=== PATIENT | male | born 1965 | race Caucasian/White ===

== ENCOUNTER 2017-09-18 09:57 | Day surgery (SDC) | payer MEDICARE, SELFPAY ==
[2017-09-13 15:56] VITALS: BMI 27.3
--- NOTE | 2017-09-14 15:54 | SUR.PREOP ---
Addendum entered by Aisha Alexander RN 09/14/17 16:05: pt notified per vm-can stop effient, remain on aspirin. Original Note: [facility]-surgical clearance on chart
[2017-09-18] VITALS (7 sets, daily range): BP systolic 98–148; BP diastolic 61–90; PULSE 73–92; RESP 16–18; TEMP 36.4–36.6; O2SAT 92–98
--- NOTE | 2017-09-18 10:59 | P.PN_ITS ---
[facility] Anesthesia Checklist - Structural Data Admitted From: Home Planned Operative Procedure/s: colonoscopy Consent for Planned Operative Procedure(s) Verified: Yes - NPO Status Verified Time NPO: 12:00 - Airway Assessment C-Spine Mobility Assessed: Yes TMJ Mobility Assessed: Yes Dentition: Good Dentition - Neurological Assessment Level of Consciousness: Awake, Alert - Anesthesia Plan Anesthesia Risk discussed: Yes Anesthesia Plan: Verified ASA Class: III Anesthesia Type: MAC [facility] Anesthesia HX I have reviewed the patient's past medical history: Yes Medical History: Reports:: Atherosclerotic Heart Disease, Congestive Heart Failure, Coronary Artery Disease, Hypertension, Internal Pacemaker, Lung Disease (COPD, SMOKER 1.5 PPD), Myocardial Infarction Denies:: Diabetes Mellitus Type 1, Diabetes Mellitus Type 2, Seizures Other Surgeries: Yes: Pacemaker Comment: neck surgery
--- NOTE | 2017-09-18 12:03 | HMH.PROC ---
[facility] Procedure Note Procedure Note:: Colonoscopy Procedure Report: Colonoscopy with cold snare polypectomy Endoscopist: Tree Montero II, MD Referring physician: Telly Hancock MD Date of Procedure: August 29, 2017 Equipment: Olympus 180 variable stiffness pediatric colonoscope Sedation: MAC sedation Indication: Mr. Mendoza is a 51-year-old gentleman who is here for initial screening colonoscopy. He reports no abdominal pain, weight loss, change in his bowel habits or rectal bleeding. He reports no family of colon cancer. His mother had colonic polyps. Procedure: Prior to the procedure, a history and physical exam was performed, and patient's medications and allergies were reviewed. The risks, benefits and alternatives of the sedation and procedure were discussed with the patient. All questions were answered and informed consent was obtained. The patient was brought to the procedure room. Patient identification and proposed procedure were verified by the physician and the nurse. The patient was placed in a left lateral decubitus position and the scope was passed under direct vision. Throughout the procedure, the patient's blood pressure, pulse, and oxygen saturations were monitored continuously. The colonoscopy was accomplished without difficulty. The patient tolerated the procedure well. Findings: On digital rectal examination there was normal rectal tone. There were no external hemorrhoids. The colonoscope was introduced through the anal canal to the rectum and advanced to the cecum. The ileocecal valve and appendiceal orifice were identified. The scope was advanced a short distance into the ileum which appeared grossly normal. The scope was then withdrawn into the colon. There were 2 colon polyps identified in the transverse ?2. These ranged in size from 5-7 mm and were all removed via cold snare polypectomy. The remaining cecum, ascending, transverse, descending, sigmoid and rectum were grossly normal. There were no other mucosal abnormalities identified. Upon retroflexion within the rectum there were grade 1 internal hemorrhoids. Impression: 1. Colonic polyps ?2 2. Grade 1 internal hemorrhoids Plan: I will follow up the polyp pathology and recommend repeat colonoscopy again in 5 years based upon the polyp histology. I would encourage fiber supplementation on a long-term daily maintenance basis.
--- NOTE | 2017-09-18 14:03 | SUR.PHASEII ---
Patient family member came back looking for patient's ring. She stated she put the ring in her purse but now cannot find it. We have helped her search but was not able to find it. Ring was not on patient's person during or after procedure.
== END 2017-09-18 13:15 | disposition home or self-care (01) ==
LOC: OUTP 10:01
PROVIDERS: PCP Emergency Medicine; Visit Provider Internal Medicine Gastroenterology
PROC: 0DJD8ZZ Inspection of Lower Intestinal Tract, Via Natural or Artificial Opening Endoscopic (ICD-10-PCS; CPT 45378; principal; 2017-09-18 11:00)
DX: Z12.11 Encounter for screening for malignant neoplasm of colon (principal); D12.3 Benign neoplasm of transverse colon; K64.0 First degree hemorrhoids
CPT/HCPCS: 45380; 88305

== ENCOUNTER → 2020-09-05 12:06 | Outpatient (CLI) | payer MEDICARE, SELFPAY | PROVIDERS: PCP Family Medicine; Visit Provider Nurse Practitioner | DX: Z20.822 Contact with and (suspected) exposure to COVID-19 (principal); U07.1 COVID-19 | CPT/HCPCS: U0003 ==

== ENCOUNTER → 2021-05-07 12:10 | Outpatient (CLI) | payer MEDICARE, SELFPAY | PROVIDERS: PCP Family Medicine; Referring Provider Family Medicine; Visit Provider Family Medicine | DX: Z20.822 Contact with and (suspected) exposure to COVID-19 (principal) | CPT/HCPCS: U0003 ==

== ENCOUNTER 2022-03-02 14:51 | Emergency (ER) | payer MEDICARE, SELFPAY ==
[2022-03-02 15:19] VITALS: BP 146/87; PULSE 106; RESP 16; TEMP 36.9; O2SAT 95; BMI 28.2
--- NOTE | 2022-03-02 15:30 | HMH.EDUTC ---
[facility] [place] Clinical Impression: Exposure to COVID-19 virus Disposition: Home, Self-Care Condition on Discharge: Good Instructions: DI for COVID-19 (Suspected or Confirmed ), Preventing the Spread of Coronavirus Discharge Instructions Additional Instructions: Drink plenty of fluids. Take tylenol for pain or fever. Return if you begin to have difficulty breathing. Follow up with your regular doctor. GO TO THE ER FOR ANY WORSENING SYMPTOMS Quarantine until you know the results of your covid-19 test. If it is positive, the health department should call you and give you further instructions about your length of Quarantine and other things. Notify your school or workplace of your results and follow their instructions regarding return to work/school. Referrals: Provider,Referral, [Primary Care Provider] - Time of Disposition: 15:35 Medical Decision Making - Medical Records Medical records reviewed: No: I reviewed the patient's medical records. - [place] Inquiry Pt receiving controlled substance: No Vital Signs: 03/02/22 15:19 03/02/22 15:37 Temperature 98.5 F 98.5 F Temperature Source Oral Pulse Rate 106 H Pulse Rate [Left] 106 H Respiratory Rate 16 16 Blood Pressure 146/87 H Blood Pressure [Right Arm] 146/87 H Blood Pressure Mean [Right Arm] 106 02 Sat by Pulse Oximetry 95 Orders (Tests/Meds): ORDERS Category Date Time Status Covid-19 Nasal PCR ([facility]) Routine Lab 03/02/22 15:16 Received [facility] [place] - General Stated complaint: covid exposure Time Seen by Provider: 03/02/22 15:30 Description of Symptoms (Recalled from Triage Doc. by RN): patient comes in for covid test. patient was exposed by . HEENT Symptoms (Recalled from RN notes): No Resp Symptoms (Recalled from RN notes): No Skin Symptoms (Recalled from RN notes): No MS Symptoms (Recalled from RN notes): No Functional Status (Recalled from RN notes): wnl - History of Present Illness Provider Complaint: Both his mother and his have tested positive for covid-19 this morning. He is not having any symptoms, but he needs a covid test. - Related Data Home Medications Medication Instructions Recorded Confirmed Aspirin [Aspirin 81mg chewable 81 mg PO DAILY 09/13/17 09/13/18 tab] Furosemide [Furosemide 40MG tAB] 40 mg PO DAILY 09/13/17 09/13/18 Metoprolol Succinate [Toprol XL 50 mg PO DAILY 09/13/17 09/13/18 50mg Tablet] Potassium Chloride [Klor-con 20 20 meq PO DAILY 09/13/17 09/13/18 mEq tablet] Prasugrel HCl [Effient 10mg tablet] 10 mg PO DAILY 09/13/17 09/13/18 Sacubitril/Valsartan [Entresto 24 1 each PO DAILY 09/13/17 09/13/18 mg-26 mg Tablet] Simvastatin 40 mg PO DAILY 09/13/17 09/13/18 Oxycodone HCl [Oxycodone (IR) 10mg 10 mg PO DAILY 09/18/17 09/13/18 Tab] Allergies Allergy/AdvReac Type Severity Reaction Status Date / Time No Known Allergies Allergy Verified 03/02/22 15:24 - Worker's Comp Is this a Worker's Comp case?: No [facility] History - Hepatitis A Screen Attestation statement:: This patient has been screened for Hepatitis A risk factors. I have reviewed the patient's past medical history: Yes Medical History: Reports:: Atherosclerotic Heart Disease, Congestive Heart Failure, Coronary Artery Disease, Hypertension, Internal Pacemaker, Lung Disease (COPD, SMOKER 1.5 PPD), Myocardial Infarction Denies:: Cancer, Diabetes Mellitus Type 1, Diabetes Mellitus Type 2, MRSA, Seizures Laterality Cases: Bilateral: Tonsillectomy Other Surgeries: Yes: Pacemaker Amputation: No Comment: neck surgery - Social History Smoking Status: Current every day smoker Tobacco Type: cigarettes Alcohol Intake: current Alcohol Intake Frequency:: holidays/special occasions only ROS Obtained: Yes All systems reviewed & no additional complaints - Constitutional Constitutional: Reports system reviewed and no additional complaints, except as docu - Eyes Eyes: Reports system
[2022-03-02 15:37] VITALS: BP 146/87; PULSE 106; RESP 16; TEMP 36.9
== END 2022-03-02 15:42 | disposition home or self-care (01) ==
PROVIDERS: Emergency Provider Nurse Practitioner Family
DX: U07.1 COVID-19 (principal); F17.210 Nicotine dependence, cigarettes, uncomplicated
CPT/HCPCS: 99212; C9803; G0463; U0003; U0005

== ENCOUNTER → 2022-09-26 08:58 | Outpatient (CLI) | payer MEDICARE, SELFPAY | PROVIDERS: PCP Emergency Medicine; Visit Provider Emergency Medicine | DX: M79.605 Pain in left leg (principal) ==

== ENCOUNTER → 2022-11-21 13:58 | Outpatient (CLI) | payer MEDICARE, SELFPAY ==
[2022-11-21 15:02] LABS: Amphetamine/Metha Screen,Urine Negative ng/ml (<1000)
[2022-11-21 15:32] LABS: Barbiturates Screen,Urine Negative ng/ml (<200)
[2022-11-21 15:33] LABS: Benzodiazepines Screen,Urine Negative ng/ml (<200)
[2022-11-21 15:34] LABS: Cocaine Screen,Urine Negative ng/ml (<300)
[2022-11-21 15:35] LABS: Methadone Screen,Urine Negative ng/ml (<300); Opiate Screen,Urine Positive ng/ml (<300)
[2022-11-21 15:36] LABS: Phencyclidine Screen,Urine Negative ng/ml (<25)
[2022-11-21 16:10] LABS: Cannabinoid Screen,Urine Negative ng/ml (<50)
== END ==
PROVIDERS: PCP Emergency Medicine; Visit Provider Emergency Medicine
DX: Z79.899 Other long term (current) drug therapy (principal)
CPT/HCPCS: 80305

== ENCOUNTER → 2023-01-17 16:24 | Outpatient (CLI) | payer MEDICARE, SELFPAY ==
[2023-01-17 14:21] LABS: Amphetamine/Metha Screen,Urine Negative ng/ml (<1000)
[2023-01-17 14:22] LABS: Barbiturates Screen,Urine Negative ng/ml (<200)
[2023-01-17 14:23] LABS: Benzodiazepines Screen,Urine Negative ng/ml (<200); Cannabinoid Screen,Urine Negative ng/ml (<50)
[2023-01-17 14:24] LABS: Cocaine Screen,Urine Negative ng/ml (<300)
[2023-01-17 14:25] LABS: Methadone Screen,Urine Negative ng/ml (<300); Opiate Screen,Urine Positive ng/ml (<300)
[2023-01-17 14:26] LABS: Phencyclidine Screen,Urine Negative ng/ml (<25)
== END ==
PROVIDERS: PCP Emergency Medicine; Visit Provider Emergency Medicine
DX: M79.2 Neuralgia and neuritis, unspecified (principal)
CPT/HCPCS: 80305

== ENCOUNTER 2023-02-13 12:44 | Emergency (ER) | payer MEDICARE, SELFPAY ==
[2023-02-13 13:40] VITALS: BP 148/78; PULSE 101; RESP 17; TEMP 37; O2SAT 96; BMI 28.5
--- NOTE | 2023-02-13 14:10 | EXP.UTC ---
Discharge Plan Disposition Patient Disposition: Home, Self-Care Condition: Good Prescriptions Prescriptions: New cephalexin 500 mg capsule 500 mg PO QID 7 Days Qty: 28 0RF mupirocin 2 % ointment 1 applic topical TID 10 Days Qty: 22 0RF Rx Instructions: apply to lesions as directed No Action gabapentin 400 mg capsule 400 mg PO TID Qty: 90 1RF oxycodone 10 mg tablet 10 mg PO QID Qty: 120 0RF zolpidem [Ambien] 5 mg tablet 5 mg PO HS Qty: 30 1RF Repatha SureClick 140 mg/mL pen injector 140 mg SQ Q2W nitroglycerin 0.4 mg tablet, sublingual 0.4 mg sublingual PRN furosemide 40 MG tablet 40 mg PO DAILY metoprolol succinate [Toprol XL] 50 MG tablet 50 mg PO DAILY simvastatin 40 MG tablet 40 mg PO DAILY potassium chloride 20 MEQ tablet 20 meq PO DAILY aspirin 81 MG tablet,chewable 81 mg PO DAILY prasugrel [Effient] 10 MG tablet 10 mg PO DAILY sacubitril-valsartan [Entresto] 1 EACH tablet 1 ea PO DAILY Referrals Follow up/Referrals: Adrian Almaguer MD [Primary Care Provider] - See instructions Activity Restrictions/Add. Instructions Additional Instructions/Restrictions: Take antibiotics and topical ointment as directed Watch for worsening signs of infection including but not limited too redness, streaks swelling and warmth follow up immediately if seen Follow up with your Family Doctor if no improvement or any worsening of symptoms Return if needed Clinical Impressions Clinical Impression: Impetigo Instructions Patient Instructions: DI for Impetigo, Impetigo, Cephalexin, Mupirocin Discharge ED Provider: Khadijah Gatica [facility] General Stated complaint: congestion, possible blister on lip Mode of Arrival: Ambulatory Source of Information: Patient Limitations: No Limitations Time Seen by Provider: 02/13/23 14:11 Description of Symptoms (Recalled from Triage Doc. by RN): PATIENT C/O SORES TO BACK, NOSE, AND AROUND MOUTH. ALSO C/O SINUS DRAINAGE, CONGESTION, FEVER AND DECREASED APPETITE HEENT Symptoms (Recalled from RN notes): Yes Resp Symptoms (Recalled from RN notes): No Skin Symptoms (Recalled from RN notes): Yes MS Symptoms (Recalled from RN notes): No Functional Status (Recalled from RN notes): WNL History of Present Illness Provider Complaint: Patient states that he has been having sinus congestion with drainage and thinks he may have had a fever he felt flush earlier States that also he thinks he has a staph infection again States that he has been having small sore like lesions beside his nose and on his chin under his mouth also has one on his back that he busted States that he has had them before and had to get antibiotics Related Data Home Medications Medication Instructions Recorded Confirmed aspirin 81 mg chewable tablet 81 mg PO DAILY Heart disease 09/13/17 01/17/23 furosemide 40 mg tablet 40 mg PO DAILY FLUID RETENTION 09/13/17 01/17/23 metoprolol succinate 50 mg 50 mg PO DAILY Heart disease 09/13/17 01/17/23 tablet,extended release 24 hr (Toprol XL) potassium chloride 20 mEq 20 meq PO DAILY Supplement 09/13/17 01/17/23 tablet,extended release(part/cryst) prasugrel 10 mg tablet (Effient) 10 mg PO DAILY Blood thinner 09/13/17 01/17/23 sacubitril 24 mg-valsartan 26 mg 1 ea PO DAILY Heart disease 09/13/17 01/17/23 tablet (Entresto) simvastatin 40 mg tablet 40 mg PO DAILY Cholesterol 09/13/17 01/17/23 evolocumab 140 mg/mL subcutaneous 140 mg SQ Q2W 11/21/22 01/17/23 pen injector (Tommie Palmer) nitroglycerin 0.4 mg sublingual 0.4 mg sublingual PRN 11/21/22 01/17/23 tablet Previous Rx's Medication Instructions Recorded gabapentin 400 mg capsule 400 mg PO TID #90 caps 01/17/23 oxycodone 10 mg tablet 10 mg PO QID #120 tabs 01/17/23 zolpidem 5 mg tablet (Ambien) 5 mg PO HS #30 tabs 01/17/23 cephalexin 500 mg capsule 500 mg PO QID 7 days #28 caps 02/13/23 mupirocin 2 % topical oint
[2023-02-13 14:19] VITALS: BP 148/78; PULSE 101; RESP 17; TEMP 37; O2SAT 96
== END 2023-02-13 14:24 | disposition home or self-care (01) ==
PROVIDERS: Emergency Provider Nurse Practitioner; PCP Emergency Medicine
DX: L01.00 Impetigo, unspecified (principal); F17.210 Nicotine dependence, cigarettes, uncomplicated; I11.0 Hypertensive heart disease with heart failure; I50.9 Heart failure, unspecified; I25.10 Atherosclerotic heart disease of native coronary artery without angina pectoris; Z95.810 Presence of automatic (implantable) cardiac defibrillator
CPT/HCPCS: 99212; 99214; G0463

== ENCOUNTER → 2023-02-21 15:41 | Outpatient (CLI) | payer MEDICARE, SELFPAY ==
[2023-02-21 16:16] LABS: Basophils # 0.1 K/mm3 (0-0.2); Basophils % 0.5 % (0.1-2.0); Eosinophils # 0.2 K/mm3 (0.0-0.4); Eosinophils % 1.5 % (0.1-12.0); Hematocrit 46.9 % (42.0-52.0); Lymphocytes # 1.8 K/mm3 (0.7-4.5); Lymphocytes % 17.7 % (10-50); Mean Corpuscular Hemoglobin 28.7 pg (27.0-31.2); Mean Corpuscular Volume 89.7 fl (80-94); Mean Platelet Volume 7.2 fl (7.4-10.4); Monocytes # 0.5 K/mm3 (0.1-1.0); Monocytes % 4.8 % (1.7-9.3); Neutrophils # 7.6 K/mm3 (1.8-7.8); Neutrophils % 75.5 % (37.0-80.0); Platelet Count 174 K/mm3 (142-424); Red Blood Count 5.22 M/mm3 (4.60-6.20); Red Cell Distribution Width 13.3 % (11.5-17.5); White Blood Count 10.1 K/mm3 (4.8-10.8)
[2023-02-21 16:53] LABS: Alanine Aminotransferase 31 U/L (12-78); Albumin Level 4.1 g/dl (3.5-5.0); Albumin/Globulin Ratio 1.4 (1.1-1.8); Alkaline Phosphatase 128 U/L (38-126); Anion Gap 15.9 mEq/L (5-15); Aspartate Amino Transferase 29 U/L (17-59); Bilirubin,Total 0.4 mg/dl (0.2-1.3); Blood Urea Nitrogen 8 mg/dl (9-20); Calcium 8.7 mg/dl (8.4-10.2); Carbon Dioxide 29 mmol/L (22.0-30.0); Chloride 101 mmol/L (98-107); Chol/HDL Ratio 2.3 (1-3.5); Cholesterol 96 mg/dl (140-200); Estimated Glomerular Filt Rate 87 ml/min (>60); GFR (African American) 105 ML/MIN (>60); Glucose 172 mg/dl (74-100); HDL Cholesterol 42 mg/dl (40-60); Potassium 3.9 mmoL/L (3.5-5.1); Sodium 142 mmol/L (136-145); Total Protein,Serum 7.1 g/dl (6.3-8.2); Triglycerides 118 mg/dl (30-150); VLDL Cholesterol 24 mg/dL (0-40)
[2023-02-21 17:05] LABS: Direct LDL Cholesterol 44.45 mg/dL (100-129)
[2023-02-21 17:11] LABS: 25-OH Vitamin D, Total 39.3 ng/mL (30-100)
[2023-02-21 17:24] LABS: Thyroid Stimulating Hormone 0.64 uIU/mL (0.465-4.68)
== END ==
PROVIDERS: PCP Emergency Medicine; Visit Provider Emergency Medicine
DX: E66.9 Obesity, unspecified (principal); T14.8XXA Other injury of unspecified body region, initial encounter; G47.00 Insomnia, unspecified; E55.9 Vitamin D deficiency, unspecified; I25.10 Atherosclerotic heart disease of native coronary artery without angina pectoris; Z68.30 Body mass index [BMI] 30.0-30.9, adult
CPT/HCPCS: 36415; 80053; 80061; 82306; 84443; 85025

== ENCOUNTER → 2023-05-09 23:53 | Outpatient (CLI) | payer MEDICARE, SELFPAY ==
[2023-05-09 20:23] LABS: Amphetamine/Metha Screen,Urine Negative ng/ml (<1000)
[2023-05-09 20:24] LABS: Barbiturates Screen,Urine Negative ng/ml (<200)
[2023-05-09 20:25] LABS: Benzodiazepines Screen,Urine Negative ng/ml (<200); Cannabinoid Screen,Urine Negative ng/ml (<50)
[2023-05-09 20:30] LABS: Cocaine Screen,Urine Negative ng/ml (<300)
[2023-05-09 20:31] LABS: Methadone Screen,Urine Negative ng/ml (<300)
[2023-05-09 20:32] LABS: Opiate Screen,Urine Positive ng/ml (<300); Phencyclidine Screen,Urine Negative ng/ml (<25)
== END ==
PROVIDERS: PCP Emergency Medicine; Visit Provider Emergency Medicine
DX: M79.2 Neuralgia and neuritis, unspecified (principal); Z79.899 Other long term (current) drug therapy
CPT/HCPCS: 80305

== ENCOUNTER → 2023-07-04 14:34 | Outpatient (CLI) | payer MEDICARE, SELFPAY ==
[2023-07-04 14:08] LABS: Barbiturates Screen,Urine Negative ng/ml (<200)
[2023-07-04 14:09] LABS: Amphetamine/Metha Screen,Urine Negative ng/ml (<1000); Benzodiazepines Screen,Urine Negative ng/ml (<200)
[2023-07-04 14:10] LABS: Cocaine Screen,Urine Negative ng/ml (<300)
[2023-07-04 14:11] LABS: Cannabinoid Screen,Urine Negative ng/ml (<50); Methadone Screen,Urine Negative ng/ml (<300)
[2023-07-04 14:13] LABS: Opiate Screen,Urine Positive ng/ml (<300); Phencyclidine Screen,Urine Negative ng/ml (<25)
== END ==
PROVIDERS: PCP Emergency Medicine; Visit Provider Emergency Medicine
DX: M79.2 Neuralgia and neuritis, unspecified (principal); Z79.899 Other long term (current) drug therapy
CPT/HCPCS: 80305

== ENCOUNTER 2023-09-15 13:52 | Outpatient (CLI) | payer MEDICARE, SELFPAY ==
[2023-09-15 15:14] LABS: Amphetamine/Metha Screen,Urine Negative ng/ml (<1000)
[2023-09-15 15:15] LABS: Barbiturates Screen,Urine Negative ng/ml (<200)
[2023-09-15 15:16] LABS: Benzodiazepines Screen,Urine Negative ng/ml (<200); Cannabinoid Screen,Urine Negative ng/ml (<50)
[2023-09-15 15:17] LABS: Cocaine Screen,Urine Negative ng/ml (<300); Methadone Screen,Urine Negative ng/ml (<300)
[2023-09-15 15:18] LABS: Opiate Screen,Urine Positive ng/ml (<300)
[2023-09-15 15:19] LABS: Phencyclidine Screen,Urine Negative ng/ml (<25)
[2023-09-19 08:20] LABS: Opiates Negative (Cutoff=100); Oxycodone (GC/MS) >3000 ng/mL (Cutoff=100); Oxymorphone (GC/MS) >3000 ng/mL (Cutoff=100)
== END 2023-09-15 23:59 ==
LOC: LAB.DROPOF 13:58
PROVIDERS: PCP Internal Medicine; Visit Provider Internal Medicine
DX: Z79.899 Other long term (current) drug therapy (principal)
CPT/HCPCS: 80307; 80361; 80365; G0480

== ENCOUNTER 2023-10-10 11:59 | Outpatient (CLI) | payer MEDICARE, SELFPAY ==
[2023-10-10 12:45] LABS: Hemoglobin A1C 6.2 % (4.0-6.0)
[2023-10-10 12:49] LABS: Alanine Aminotransferase 20 U/L (12-78); Albumin Level 4.3 g/dl (3.5-5.0); Albumin/Globulin Ratio 1.4 (1.1-1.8); Alkaline Phosphatase 110 U/L (38-126); Anion Gap 11.6 mEq/L (5-15); Aspartate Amino Transferase 29 U/L (17-59); Bilirubin,Total 0.3 mg/dl (0.2-1.3); Blood Urea Nitrogen 6 mg/dl (9-20); Calcium 9.1 mg/dl (8.4-10.2); Carbon Dioxide 29 mmol/L (22.0-30.0); Chloride 104 mmol/L (98-107); Estimated Glomerular Filt Rate 87 ml/min (>60); GFR (African American) 105 ML/MIN (>60); Glucose 119 mg/dl (74-100); Potassium 3.6 mmoL/L (3.5-5.1); Sodium 141 mmol/L (136-145); Total Protein,Serum 7.3 g/dl (6.3-8.2)
== END 2023-10-10 23:59 ==
LOC: LAB.DROPOF 12:00
PROVIDERS: PCP Internal Medicine; Visit Provider Internal Medicine
DX: I25.10 Atherosclerotic heart disease of native coronary artery without angina pectoris; Z79.899 Other long term (current) drug therapy; M54.50 Low back pain, unspecified; Z72.0 Tobacco use
CPT/HCPCS: 80053; 83036

== ENCOUNTER 2024-01-30 18:00 | Outpatient (CLI) | payer MEDICARE, SELFPAY ==
[2024-01-30 18:12] LABS: Basophils # 0.1 K/mm3 (0-0.2); Basophils % 0.6 % (0.1-2.0); Eosinophils # 0.1 K/mm3 (0.0-0.4); Eosinophils % 0.7 % (0.1-12.0); Hematocrit 49.6 % (42.0-52.0); Hemoglobin 15.5 g/dL (14.1-18.0); Lymphocytes # 1.6 K/mm3 (0.7-4.5); Lymphocytes % 20.2 % (10-50); Mean Corpuscular HGB Conc 31.2 g/dL (31.8-35.4); Mean Corpuscular Hemoglobin 28.9 pg (27.0-31.2); Mean Corpuscular Volume 92.6 fl (80-94); Mean Platelet Volume 7.9 fl (7.4-10.4); Monocytes # 0.4 K/mm3 (0.1-1.0); Monocytes % 5.5 % (1.7-9.3); Neutrophils # 5.7 K/mm3 (1.8-7.8); Neutrophils % 72.9 % (37.0-80.0); Platelet Count 188 K/mm3 (142-424); Red Blood Count 5.36 M/mm3 (4.60-6.20); Red Cell Distribution Width 14.2 % (11.5-17.5); White Blood Count 7.8 K/mm3 (4.8-10.8)
[2024-01-30 18:36] LABS: Alanine Aminotransferase 18 U/L (12-78); Albumin Level 4.5 g/dl (3.5-5.0); Albumin/Globulin Ratio 1.4 (1.1-1.8); Alkaline Phosphatase 109 U/L (38-126); Anion Gap 17.1 mEq/L (5-15); Aspartate Amino Transferase 30 U/L (17-59); Bilirubin,Total 0.5 mg/dl (0.2-1.3); Blood Urea Nitrogen 12 mg/dl (9-20); Calcium 9.4 mg/dl (8.4-10.2); Carbon Dioxide 29 mmol/L (22.0-30.0); Chloride 100 mmol/L (98-107); Chol/HDL Ratio 2.9 (1-3.5); Cholesterol 118 mg/dl (140-200); Estimated Glomerular Filt Rate 87 ml/min (>60); GFR (African American) 105 ML/MIN (>60); Globulin 3.3 g/dL (1.3-3.2); Glucose 78 mg/dl (74-100); HDL Cholesterol 41 mg/dl (40-60); Potassium 4.1 mmoL/L (3.5-5.1); Sodium 142 mmol/L (136-145); Total Protein,Serum 7.8 g/dl (6.3-8.2); Triglycerides 94 mg/dl (30-150); VLDL Cholesterol 19 mg/dL (0-40)
[2024-01-30 18:48] LABS: Direct LDL Cholesterol 65.71 mg/dL (100-129)
[2024-01-30 18:57] LABS: Hemoglobin A1C 5.8 % (4.0-6.0)
[2024-01-30 19:06] LABS: Prostate Specific Ag Screen 0.3 ng/ml (0.0-4.0)
== END 2024-01-30 23:59 | disposition home or self-care (01) ==
LOC: LAB.DROPOF 01-31 11:01
PROVIDERS: PCP Internal Medicine; Visit Provider Internal Medicine
DX: R53.83 Other fatigue (principal); R73.09 Other abnormal glucose; Z12.5 Encounter for screening for malignant neoplasm of prostate; E78.5 Hyperlipidemia, unspecified
CPT/HCPCS: 80053; 80061; 83036; 85025; G0103

== ENCOUNTER 2024-04-03 20:03 | Outpatient (CLI) | payer MEDICARE, SELFPAY ==
[2024-04-03 21:29] LABS: Creatinine,Urine Random 97 mg/dL (Not Estab.)
== END 2024-04-03 23:59 | disposition home or self-care (01) ==
LOC: LAB.DROPOF 20:04
PROVIDERS: PCP Internal Medicine; Visit Provider Internal Medicine
DX: R73.03 Prediabetes (principal)
CPT/HCPCS: 82043; 82570

== ENCOUNTER 2024-04-24 14:04 | Outpatient (CLI) | payer MEDICARE, SELFPAY ==
--- NOTE | 2024-04-24 14:08 | CT_ITS ---
FINAL REPORT CLINICAL HISTORY: Current smoker with [id number] history FINDINGS: Axial images were obtained from the lung apex to the mid abdomen by computed tomography. Low-dose protocol was utilized. CTDl vol(mGy): 2.90 DLP (mGy-cm): 110.72 FINDINGS: There is a left upper anterior chest wall pacemaker. There is streak artifact from sternotomy wires. There is no axillary adenopathy. There is no hilar or mediastinal adenopathy. Dense vascular calcification of the coronary arteries is noted. The heart size is normal. There is mild to moderate gynecomastia. There is no pericardial or pleural effusion. Limited images of the upper abdomen are unremarkable. Lung window images demonstrate no suspicious infiltrate or nodule. IMPRESSION: Lung RADS category 1. Recommend 12 month follow-up low-dose chest CT. Reviewed, Interpreted and Dictated by Miguel Hernandez MD Transcribed by Renee Gomez Authenticated and [facility]
== END 2024-04-24 23:59 | disposition home or self-care (01) ==
LOC: RAD 14:05
PROVIDERS: PCP Internal Medicine; Visit Provider Internal Medicine
DX: F17.210 Nicotine dependence, cigarettes, uncomplicated (principal)
CPT/HCPCS: 71271

== ENCOUNTER 2024-07-08 11:35 | Outpatient (CLI) | payer MEDICARE, SELFPAY ==
[2024-07-08 19:14] LABS: Thyroid Stimulating Hormone 1.24 uIU/mL (0.465-4.68)
[2024-07-08 19:33] LABS: Vitamin B12 637 pg/mL (239-931)
== END 2024-07-08 23:59 | disposition home or self-care (01) ==
LOC: LAB.DROPOF 07-09 10:03
PROVIDERS: PCP Internal Medicine; Visit Provider Internal Medicine
DX: R53.83 Other fatigue (principal); R73.03 Prediabetes; I10 Essential (primary) hypertension; E78.00 Pure hypercholesterolemia, unspecified; I25.10 Atherosclerotic heart disease of native coronary artery without angina pectoris; I73.9 Peripheral vascular disease, unspecified; R80.9 Proteinuria, unspecified; Z79.891 Long term (current) use of opiate analgesic; Z72.0 Tobacco use; Z79.899 Other long term (current) drug therapy
CPT/HCPCS: 82607; 84443

== ENCOUNTER 2024-09-04 18:51 | Outpatient (CLI) | payer MEDICARE, SELFPAY ==
[2024-09-04 19:50] LABS: Microalbumin/Creatinine Ratio 13.8
[2024-09-04 20:04] LABS: Creatinine,Urine Random 123 mg/dL (Not Estab.)
== END 2024-09-04 23:59 | disposition home or self-care (01) ==
LOC: LAB.DROPOF 18:52
PROVIDERS: PCP Internal Medicine; Visit Provider Internal Medicine
DX: R73.03 Prediabetes (principal)
CPT/HCPCS: 82043; 82570

== ENCOUNTER 2025-01-02 13:25 | Outpatient (CLI) | payer MEDICARE, SELFPAY ==
[2025-01-02 19:18] LABS: Alanine Aminotransferase 22 U/L (12-78); Albumin Level 4.2 g/dl (3.5-5.0); Albumin/Globulin Ratio 1.7 (1.1-1.8); Alkaline Phosphatase 146 U/L (38-126); Anion Gap 4.9 mEq/L (5-15); Aspartate Amino Transferase 25 U/L (17-59); Bilirubin,Total 0.5 mg/dl (0.2-1.3); Blood Urea Nitrogen 16 mg/dl (9-20); Carbon Dioxide 26 mmol/L (22.0-30.0); Chloride 105 mmol/L (98-107); Estimated Glomerular Filt Rate 76 ml/min (>60); GFR (African American) 93 ML/MIN (>60); Globulin 2.5 g/dL (1.3-3.2); Glucose 99 mg/dl (74-100); HDL Cholesterol 37 mg/dl (40-60); Potassium 3.9 mmoL/L (3.5-5.1); Sodium 132 mmol/L (136-145); Total Protein,Serum 6.7 g/dl (6.3-8.2); Triglycerides 35 mg/dl (30-150); VLDL Cholesterol 7 mg/dL (0-40)
[2025-01-02 19:44] LABS: Chol/HDL Ratio 1.4 (1-3.5); Cholesterol < 50 mg/dl (140-200); Direct LDL Cholesterol < 30.00 mg/dL (100-129)
== END 2025-01-02 23:59 | disposition home or self-care (01) ==
LOC: LAB.DROPOF 01-03 13:12
PROVIDERS: PCP Family Medicine; Visit Provider Family Medicine
DX: R73.03 Prediabetes (principal); I10 Essential (primary) hypertension
CPT/HCPCS: 80053; 80061; 83036

== ENCOUNTER 2025-06-30 07:27 | Outpatient (CLI) | payer MEDICARE, SELFPAY ==
[2025-06-30 17:01] LABS: Alanine Aminotransferase 15 U/L (12-78); Albumin Level 4.3 g/dl (3.5-5.0); Albumin/Globulin Ratio 1.4 (1.1-1.8); Alkaline Phosphatase 148 U/L (38-126); Anion Gap 12.9 mEq/L (5-15); Aspartate Amino Transferase 20 U/L (17-59); Bilirubin,Total 0.6 mg/dl (0.2-1.3); Blood Urea Nitrogen 13 mg/dl (9-20); Calcium 8.6 mg/dl (8.4-10.2); Carbon Dioxide 26 mmol/L (22.0-30.0); Chloride 103 mmol/L (98-107); Cholesterol 52 mg/dl (140-200); Creatinine,Serum 0.90 mg/dl (0.66-1.25); Estimated Glomerular Filt Rate 86 ml/min (>60); GFR (African American) 105 ML/MIN (>60); Globulin 3.1 g/dL (1.3-3.2); Glucose 90 mg/dl (74-100); HDL Cholesterol 35 mg/dl (40-60); Potassium 3.9 mmoL/L (3.5-5.1); Sodium 138 mmol/L (136-145); Total Protein,Serum 7.4 g/dl (6.3-8.2); Triglycerides 55 mg/dl (30-150)
[2025-06-30 23:47] LABS: Hemoglobin A1C 6.2 % (4.0-6.0)
--- OUTSIDE RECORDS SUMMARY | 2025-07-02 07:29 | XMS_ITS | Clinical Summary ---
Author Organization [facility] Address [address] [place] [address] Phone Care Team Providers Care Tailor Apprentice Name Role Phone Nate Ledesma MD Unavailable [phone] [ ] Conditions or Problems Problem Name Problem Code Onset Date Status Entry Date Provider Comment Standard Description Annotate Cough 65603652 (SNOMED CT) 10/08 Active 10/08 Nate Ledesma MD Cough Localized swelling on legs, bilateral 188260741 (SNOMED CT) 10/08 Active 10/08 Nate Ledesma MD Swelling of lower limb Anemia due to acute blood loss 609552699 (SNOMED CT) 10/06 Active 10/06 Mireya Nuñez Acute posthemorrhagic anemia 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 (ICD-10-CM ) 10/06 Active 10/06 Mireya Nuñez Leukemoid reaction Coronary artery disease, S/P CABG 09504223 (SNOMED CT) 10/06 Active 10/06 Mireya Nuñez Coronary arteriosclerosis Alkaline phosphatase, elevated 459306849 (SNOMED CT) 10/06 Active 10/06 Mireya Nuñez Alkaline phosphatase above reference range Hypocalcemia 2322590 (SNOMED CT) 10/06 Active 10/06 Mireya Nuñez Hypocalcemia Benign Essential Hypertension 50983117 (SNOMED CT) 10/06 Active 10/06 Mireya Nuñez Benign hypertension Medications Medication Instructions Start Date Stop Date Generic Name NDC Provider OXYCODONE HCL 10 MG TABS OXYCODONE HCL 23890129253 Kole [place] SPIRONOLACTONE 25 MG TABS SPIRONOLACTONE 48125571537 Kole [place] [facility] NICOTINE 21 MG/24HR PT24 NICOTINE 25841109105 Kole Ellis METOPROLOL SUCCINATE ER 50 MG [id number] METOPROLOL SUCCINATE 39238234531 Kole Ellis FUROSEMIDE 40 MG TABS FUROSEMIDE 56401006021 Kole Ellis FERROUS SULFATE 325 (65 Fe) MG TABS FERROUS SULFATE 88599315035 Kolemariaelena Ellis DOXYCYCLINE HYCLATE 100 MG CAPS DOXYCYCLINE HYCLATE 52617694227 Kolemariaelena Ellis ATORVASTATIN CALCIUM 40 MG TABS ATORVASTATIN CALCIUM 81244465715 Kole Ellis ASPIRIN 325 MG TABS ASPIRIN 38477841374 Kole Ellis Medications Administered No information available. Allergies, Adverse Reactions, Alerts No information available. Results Date Name Value Unit Range Flag Description Lab Report: C-REACTIVE PROTE IN CRP 1.50 mg/dL 0.00-0.50 H C reactive protein [Mass/volume] in Serum or Plasma Lab Report: COMPREHENSIVE TX TABOLIC PANEL ANIONGAP 14.0 mmol/L 5.0-15.0 anion gap, serum BUN/CREAT 9.8 7.0-25.0 Urea nitrogen/Creatinine [Mass Ratio] in Serum or Plasma [id number] 1.0 g/dL GE use only - for [employer] import when terms are not otherwise specified GFRC 76 mL/min/1 .73m2 >60 Glomerular Filtration Rate Calculation BILI TOTAL 0.6 mg/dL 0.2-1.2 Bilirubin. total [Mass/volume] in Serum or Plasma ALK PHOS 145 U/L 39-117 H Alkaline rody sphatase [Enzymatic activity/volume] in Blood SGOT (AST) 18 U/L 1-40 Aspartate aminotransferase [Enzymatic activity/volume] in Serum or Plasma SGPT (ALT) 11 U/L 1-41 Alanine aminotransferase [Enzymatic activity/volume] in Serum or Plasma ALBUMIN 4.00 g/dL 3.50-5.20 Albumin [Mass/volume] in Serum or Plasma PROTEIN, TOT 7.9 g/dL 6.0-8.5 Protein [Mass/volume] in Serum or Plasma CALCIUM 9.5 mg/dL 8.6-10.5 Calcium [Moles/volume] in Serum or Plasma CO2 28.0 mmol/L 22.0-29.0 Carbon diox simone, total [Moles/volume] in Venous blood CHLORIDE 98 mmol/L 98-107 Chloride [Moles/volume] in Serum or Plasma POTASSIUM 4.2 mmol/L 3.5-5.2 Potassium [Moles/volume] in Serum or Plasma SODIUM 140 mmol/L 136-145 Sodium [Moles/volume] in Serum or Plasma CREATININE 1.02 mg/dL 0.76-1.27 Creatini ne [Mass/volume] in Serum or Plasma BUN 10 mg/dL 6-20 Urea nitrogen [Mass/volume] in Serum or Plasma GLUCOSE SER 108 mg/dL 65-99 H Glucose [Mass/volume] in Serum or Plasma Office Visit: Room 2 MEDS REVIEW Done Documenta tion of current medications (procedure) ORALTOBACUSE Never Tobacco smoking status CIGARET SMKG yes Tobacco smoking status SMOK STATUS Current every day smoker Tobacco smoking status Plan of Care Type Date Detail Pending order CMP Pending order CBC with Differe ntial Pending order C- reactive prot ein Pending order X-Ray, Chest, PA & Lateral Procedures Code Procedure Name Date Entry Date CPT-41938 CMP [id number] CBC with Differential 2018 CPT-73681 C- reactive protein CPT-67679 X-Ray, Chest, PA & Lateral 2 Vital Signs Date Name Value Unit Description BMI (Body Mass Index) 26.84 kg/m2 Bod y Mass Index (Ratio) Body Temperature 97.4 [degF] temperat ure E&M BP Diastolic 58 mm[Hg] blood pressu re, diastolic BP Systolic 116 mm[Hg] blood pressur e, systolic Heart Rate 60 /min pulse rate Respiratory Rate 16 /min respirat ory rate E&M Weight Measured 171.4 [lb_av] weight E& M Weight Measured 171.4 [lb_av] weight E& M Height 67 [in_us] height E&M Immunizations No information available. Advance Directives Directive Description Start Date POWER OF INTERN RETAIL LIVING WILL ON FILE
--- OUTSIDE RECORDS SUMMARY | 2025-07-02 07:29 | XMS_ITS | Clinical Summary ---
Author Organization Healthcare Address [address] [place] [address] Care Team Providers Care Naval Marine Engineer Name Role Phone Unavailable Primary Care Provider Unavailabl e Social History Tobacco Use Types Packs/Day Years Used Date Smoking Tobacco: Never Assessed Sex and Gender Information Value Date Recorded Sex Assigned at Not on file Legal Sex Male 7:34 PM EDT Gender Identity Not on file Sexual Orientation Not on file Plan of Treatment Not on file
--- OUTSIDE RECORDS SUMMARY | 2025-07-02 07:29 | XMS_ITS | Clinical Summary ---
Author Organization [facility] [place] [place] [address] Care Team Providers Care Manager Administration Name Role Phone Unavailable Primary Care Provider Unavailabl e Social History Tobacco Use Types Packs/Day Years Used Date Smoking Tobacco: Never Assessed Sex and Gender Information Value Date Recorded Sex Assigned at Not on file Legal Sex Male 6:41 AM EDT Gender Identity Not on file Sexual Orientation Not on file Plan of Treatment Health Maintenance Due Date Last Done Comments Annual Wellness Exam 1968 DTaP/TDaP/Td (1 - Tdap) 1984 Hepatitis B Vaccine (1 of 3 - 19+ 3-dose series) 1984 Cologuard 2010 Colon Cancer Screening 2010 Colonoscopy 2010 FIT 2010 Sigmoidoscopy 2010 Virtual Colonography 2010 Pneumococcal Vaccine 50+ (1 of 1 - PCV) 12/07/2015 Zoster (1 of 2) 12/07/2015 COVID-19 Vaccine (1 - 2024-2 6 season) 2025 Influenza Vaccine (#1) 2025 Meningococcal B Vaccine Aged Out No l onger eligible based on patient's age to complete this topic
--- OUTSIDE RECORDS SUMMARY | 2025-07-02 07:29 | XMS_ITS | Clinical Summary ---
Author Organization [facility] Address [address] [place] [address] Care Team Providers Care Hand Umbrella Tipper Name Role Phone Daniel Atkinson DO Primary Care Provider [phone] Allergies No known active allergies Medications OXYCODONE ER PO Take 10 mg by mouth 4 (Four) Times a Day. Active metoprolol tartrate (LOPRESSOR) 50 MG tablet Take 1 tablet by mouth Every 12 (Twelve) Hours. 60 tablet 11 9 Active furosemide (LASIX) 40 MG tablet Take 1 tablet by mouth Daily. 30 tablet 11 9 Active ferrous sulfate 325 (65 FE) MG tablet Take 1 tablet by mouth Daily With Breakfast. 30 tablet 9 Active spironolactone (ALDACTONE) 25 MG tablet Take 1 tablet by mouth Daily. 30 tablet 11 9 Active aspirin 81 MG chewable tablet Chew 2 tablets Daily. Active atorvastatin (LIPITOR) 80 MG tablet Take 1 tablet by mouth Daily. Active sacubitril-vals osiris (Entresto) 24-26 MG tablet Take 1 tablet by mouth 2 (Two) Times a Day. Active potassium chloride ER (K-TAB) 20 MEQ tablet controlled-rele ase ER tablet Take 10 mEq by mouth Daily. Active Evolocumab (Repatha) solution prefilled syringe injection Inject 1 mL under the skin into the appropriate area as directed Every 14 (Fourteen) Days. Active ezetimibe (ZETIA) 10 MG tablet Take 1 tablet by mouth Daily. Active clopidogrel (PLAVIX) 75 MG tablet Take 1 tablet by mouth Daily. 90 tablet 3 05/30/2024 9:25 AM EDT 10/03/202 4 Active Active Problems Problem Noted Date Diagnosed Date Femoral artery occlusion, right 05/29/2024 Encounter for implantable de fibrillator reprogramming or check 02/23/2021 Overview (02/23/2021): Added automatically from request for surgery [id number] S/P CABG x 3 07/18/19 07/19/2019 Ischemic cardiomyopathy 07/19/2019 Abnormal stress test 07/09/2019 Coronary artery disease invo lving citizen [place] coronary artery of citizen [place] heart with angina pectoris 07/09/2019 Extremity atherosclerosis with intermittent rufina dication 12/08/2016 Resolved Problems Problem Noted Date Diagnosed Date Resolved Date Coronary artery disease with unstable angina pectoris 07/15/2019 07/19/2019 Immunizations Immunization Administration Dates Next Due flucelvax quad pfs =>4 YRS 07/30/2019 Family History Medical History Relation Name Comments Heart disease Brother 1 Heart disease Brother 2 Heart attack Father No Known Problems Maternal Grandfather Heart attack Maternal Grandmother Arrhythmia Mother Heart disease Mother Diabetes Other Diabetes Paternal Grandfather Heart attack Paternal Grandmother Heart disease Paternal Uncle Relation Name Status Comments Brother 1 Alive Brother 2 Alive Father Maternal Grandfather Maternal Grandmother Mother Alive Other Paternal Grandfather Paternal Grandmother Paternal Uncle Social History Tobacco Use Types Packs/Day Years Used Date Smoking Tobacco: Every Day Cigarettes 1 41.8 Started: 1983 Smokeless Tobacco: Never Tobacco Cessation:Ready to Q uit: Not Asked; Counseling Given: Not Answered Alcohol Use Standard Drinks/Week Comments Not Currently 0 (1 standard drink = 0.6 oz pur e alcohol) SOCIALLY AUDIT-C Answer Date Recorded Q1: How often do you have a drink containing alcohol? Never 05/29/2024 Q2: How many drinks containi ng alcohol do you have on a typical day when you are drinking? Patient does not drink Q3: How often do you have si x or more drinks on one occasion? Never 05/29/2024 Abuse Screen Answer Date Recorded Feels Unsafe at Home or Work/School no 05/29/2024 Feels Threatened by Someone no 09/2023 Does Anyone Try to Keep You From Having Contact with Others or Doing Things Outside Your Home? no 05/29/2024 Physical Signs of Abuse Present no 05/29/2024 Housing Stability Answer Date Recorded Current Living Arrangements home 09/2023 Potentially Unsafe Housing Conditions Not on chandrika e 05/29/2024 Family and Community Support Answer Robert e Recorded Help with Day-to-Day Activities Not on file 06/05/2023 Lonely or Isolated Not on file 06/05/2023 Employment Answer Date Recorded Do you want help finding or keeping work or a ely b? Not on file 06/05/2023 Disabilities Answer Date Recorded Difficulty Concentrating, Remembering or Making Decisions no 05/29/2024 Difficulty Managing Errands Independently no 05/29/2024 Education Answer Date Recorded Help with school or training? 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 Not on file Not on fi le Last Filed Vital Signs Vital Sign Reading Time Taken Comments Blood Pressure 105/61 05/30/2024 11:30 AM EDT Pulse 60 05/30/2024 11:30 AM EDT Temperature 36.6 C (97.8 F) 05/30/2024 8:00 AM EDT Respiratory Rate 16 05/30/2024 10:00 AM EDT Oxygen Saturation 92% 05/30/2024 11:30 AM EDT Inhaled Oxygen Concentration - - Weight 80.1 kg (176 lb 9.4 oz) 05/29/2024 11:29 AM EDT Height 168.9 cm (5' 6.5 ) 05/29/2024 11:29 AM ED T Body Mass Index 28.08 05/29/2024 11:29 AM EDT Plan of Treatment Health Maintenance Due Date Last Done Comments TDAP/TD VACCINES (1 - Tdap) 1984 COLOGUARD 2010 COLON CANCER SCREENING 5 YEA R SIGMOIDOSCOPY 2010 COLONOSCOPY 2010 [address] CANCER SCREENING 2010 CT COLONOGRAPHY 2010 FECAL OCCULT BLOOD TEST 2010 FIT Testing (1 year) 2010 Pneumococcal Vaccine 50+ (1 of 1 - PCV) 12/07/2015 ZOSTER VACCINE (1 of 2) 12/07/2015 ANNUAL PHYSICAL 12/08/2016 HEPATITIS C SCREENING 12/08/2016 INFLUENZA VACCINE 03/28/2025 07/04/2023, , 07/30/2019, Additional history exists HEMOGLOBIN A1C Discontinued 05/22/2024, 06/29, 07/16/2019 Medical Devices Implanted Type Area Slicing Machine Feeder Device Identifier Shelf Expiration Date Model / Serial / Lot Icd-02/25/2011 Implanted:08/2010 by Abbe Tripathi MD (Quantity not on file) ICD [facility] FOR[employer] Y / / Description:Last checked in Dr. Tripahti's office on 07/02/2019; 2.2 years batter life remaining at time of interrogation. Stent Periph Zilver Ptx 6f 8x40mm 125cm - [id number] Implanted:Qty: 1 on 12/08/2016 by Abbe Tripathi MD at [facility] Implant COOK [id number] / / Abhay [facility] Radiomark Disk Ro Caterina - [id number] Implanted:Qty: 2 on 07/18/2019 by Lukasz Martin MD at [facility] Implant [employer] [id number] / / Icd Halina Duran Df4/Is1 [id number] - [id number] Implanted:Qty: 1 on 03/02/2021 by Adrian Mcadams MD at [facility] Implant [employer] [id number] / / Stentgr Endoprosth Viabahn Ro Hep 7f 7mm [id number] - [id number] - [id number] Implanted:Qty: 1 on 04/27/2022 by Delio Soriano MD at [facility] Implant Right: Artery Iliac [employer] 10/13/2024 [id number] / [id number] / Stentgr Endoprosth Viabahn Vbx Exp 8f [id number] 80cm - [id number] - [id number] Implanted:Qty: 1 on 04/27/2022 by Delio Soriano MD at [facility] Implant Left: Artery Iliac [employer] 01/17/2025 [id number] / [id number] / [id number] Vasc Vascuguard 1x6cm Strl - [id number] Implanted:Qty: 1 on 05/29/2024 by Delio Soriano MD at [facility] Implant Right: Groin [employer] 11/27/2025 [id number] / / [id number] Clip Ligat Vasc Horizon Ti Lg Orng 6ct - [id number] Implanted:Qty: 1 on 05/29/2024 by Delio Soriano MD at [facility] Implant Right: Groin [employer] 03/27/2029 [id number] / / [id number] Hemost Abs Surgicel Snow 1x2in - [id number] Implanted:Qty: 1 on 05/29/2024 by Delio Soriano MD at [facility] Implant Right: Groin [employer] J [employer] J 09/27/2024 [id number] / / [id number] Clipapplr M/ Endo Ligaclip9 3/8in Md - [id number] Implanted:Qty: 1 on 05/29/2024 by Delio Soriano MD at [facility] Implant Right: Groin [employer] ENDO SURGERY DIV [employer] J [employer] J 01/25/2029 [id number] / / [id number] Stent Nitnl Smrtctrl 9x40mm 120cm - [id number] Implanted:Qty: 1 on 12/08/2016 by Abbe Tripathi MD at [facility] Stent CORDIS DIV [employer] J AND J [id number] / / Icd-03/02/2021 Implanted:07/0 01/2021 (Quantity not on file) [facility] Procedures Procedure Name Priority Date/Time Associated Diagnosis Comments HEMOGLOBIN A1C Routine 05/22/2024 8:58 AM EDT from Last 3 Months or Most Recently Relevant to Health Maintenance Results * (ABNORMAL) Hemoglobin A1c (05/22/2024 8:58 AM EDT) Hemoglobin A1C 6.20(H) 4.80 - 5.60 % 05/22/2024 10:45 AM EDT [facility] Blood Venipuncture / Unknown 05/22/2024 8:58 AM EDT 05/22/2024 9:22 AM EDT Narrative [facility] - 05/22/2024 10:45 AM EDT Hemoglobin A1C Ranges: Increased Risk for Diabetes 5.7% to 6.4% Diabetes >= 6.5% Diabetic Goal < 7.0% Delio Soriano MD LAB BLOOD ORDERABLES Final Resul t [facility]
[address] [place] [address], from Last 3 Months or Most Recently Relevant to Health Maintenance Insurance MEDICARE ADVANTAGE PPO Advance Directives * CPR (Attempt to Resuscitate) (Latest Code Status on File) Date Activated Date Inactivated Comments 05/29/2024 11:29 AM 05/30/2024 2:54 PM Question Answer Comments Code Status (Patient has no pulse and is not breathing): CPR (Attempt to Resuscitate) Medical Interventions (Patie nt has pulse or is breathing): Full Support Level Of Support Discussed With: Patient * CPR (Attempt to Resuscitate) Date Activated Date Inactivated Comments 07/18/2019 5:05 PM 07/31/2019 12:37 PM Question Answer Comments Code Status (Patient has no pulse and is not breathing): CPR (Attempt to Resuscitate) Medical Interventions (Patie nt has pulse or is breathing): Full * CPR (Attempt to Resuscitate) Date Activated Date Inactivated Comments 07/15/2019 2:24 PM 07/18/2019 5:05 PM Question Answer Comments Code Status (Patient has no pulse and is not breathing): CPR (Attempt to Resuscitate) Medical Interventions (Patie nt has pulse or is breathing): Full Level Of Support Discussed With: Patient * Full Code Date Activated Date Inactivated Comments 12/08/2016 4:43 PM 12/09/2016 1:01 PM Question Answer Comments Level Of Support Discussed With: Patient Care Teams Hand Umbrella Tipper Relationship Specialty Start Date End Date Daniel Atkinson DO [address] [place] [id number] PCP - General Internal Medicine 05/22/24
--- OUTSIDE RECORDS SUMMARY | 2025-07-02 07:29 | XMS_ITS | Clinical Summary ---
Author Organization [employer] ([place], [place], [place], [place], [place]) Address [address] [place] [address] Care Team Providers Care Elevator Tender Name Role Phone Unavailable Primary Care Provider Unavailabl e Allergies No known active allergies Social History Tobacco Use Types Packs/Day Years Used Date Smoking Tobacco: Never Assessed Food Insecurity Answer Date Recorded Food run out past 12 months Not on file 02/27 Food did not last past 12 months Not on file 03/26/2024 Employment Answer Date Recorded Help finding and keeping a job Not on file 0 03/26/2024 Family and Community Support Answer Robert e Recorded Help with Day to Day Activities Not on file 03/26/2024 Feeling Lonely or Isolated Not on file 03/26 Educational Attainment Answer Date Nikko rded Speak language other than Ukrainian at home Not on file 03/26/2024 Want help with school or training Not on file 03/26/2024 Substance Use Answer Date Recorded Used prescription meds for non-medical reasons N ot on file 03/26/2024 Used illegal drugs past 12 months Not on file 03/26/2024 Sex and Gender Information Value Date Recorded Sex Assigned at Not on file Legal Sex Male 1:57 PM CDT Gender Identity Not on file Sexual Orientation Not on file Plan of Treatment Health Maintenance Due Date Last Done Comments CT Colonography 1965 Colonoscopy 1965 Colorectal Cancer Screening 1965 FOBT/FIT 1965 Fit-DNA (Cologuard) 1965 Sigmoidoscopy 1965 Depression Screening (12+) 1977 Tobacco Cessation Counseling and Screening (12+) 1977 HIV Screening 1980 Hepatitis C Screening 12/07/1983 DTAP/TDAP/TD VACCINES (2 - Td or Tdap) 11/02/2006 Pneumococcal 50+ years (1 of 1 - PCV) 12/07/2015 Shingles Vaccine (Zoster) (1 of 2) 12/07/2015 Lipid Panel 07/17/2024 07/17/2019 COVID-19 VACCINE (3 - 2024- season) 04/28/202504/2022, 02/25/2021 Influenza Vaccine (#1) 2025 07/30/2019
--- OUTSIDE RECORDS SUMMARY | 2025-07-02 07:29 | XMS_ITS | Referral Summary ---
Author Organization [facility] ([place], [place], [place], [place], [place]) Address [address] [place] [address] Care Team Providers Care Education Program Manager Name Role Phone Unavailable Primary Care Provider [...] Date Nikko rded Speak language other than Occitan at home Not on file 03/26/2024 Want [...]
== END 2025-06-30 23:59 ==
LOC: LAB.DROPOF 07-02 07:27
PROVIDERS: PCP Family Medicine; Visit Provider Family Medicine
DX: E78.00 Pure hypercholesterolemia, unspecified (principal); R73.03 Prediabetes; I10 Essential (primary) hypertension; I25.10 Atherosclerotic heart disease of native coronary artery without angina pectoris; Z12.5 Encounter for screening for malignant neoplasm of prostate
CPT/HCPCS: 80053; 80061; 83036; G0103

== ENCOUNTER 2025-07-09 10:38 | Outpatient (CLI) | payer MEDICARE, SELFPAY ==
--- OUTSIDE RECORDS SUMMARY | 2025-07-09 10:47 | XMS_ITS | Clinical Summary ---
Author Organization [facility] Address [address] [place] [address] Phone Care Team Providers Care Rolling Machine Tender Name Role Phone Nate Ledesma MD Unavailable [ ] Conditions or Problems Problem Name Problem Code Onset Date Status Entry Date Provider Comment Standard Description Annotate Cough 69109344 (SNOMED CT) 10/08 Active 10/08 Nate Ledesma MD Cough Localized swelling on legs, bilateral 798460103 (SNOMED CT) 10/08 Active 10/08 Nate Ledesma MD Swelling of lower limb Anemia due to acute blood loss 968963736 (SNOMED CT) 10/06 Active 10/06 Mireya Nuñez Acute posthemorrhagic anemia 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 (ICD-10-CM ) 10/06 Active 10/06 Mireya Nuñez Leukemoid reaction Coronary artery disease, S/P CABG 17750292 (SNOMED CT) 10/06 Active 10/06 Mireya Nuñez Coronary arteriosclerosis Alkaline phosphatase, elevated 711894021 (SNOMED CT) 10/06 Active 10/06 Mireya Nuñez Alkaline phosphatase above reference range Hypocalcemia 0373449 (SNOMED CT) 10/06 Active 10/06 Mireya Nuñez Hypocalcemia Benign Essential Hypertension 80814237 (SNOMED CT) 10/06 Active 10/06 Mireya Nuñez Benign hypertension Medications Medication Instructions Start Date Stop Date Generic Name NDC Provider OXYCODONE HCL 10 MG TABS OXYCODONE HCL 46587716774 Kole [place] SPIRONOLACTONE 25 MG TABS SPIRONOLACTONE 19792971508 Kole [place] [facility] NICOTINE 21 MG/24HR PT24 NICOTINE 36237128104 Kole Ellis METOPROLOL SUCCINATE ER 50 MG [id number] METOPROLOL SUCCINATE 84169159618 Kole Ellis FUROSEMIDE 40 MG TABS FUROSEMIDE 82875621350 Kole Ellis FERROUS SULFATE 325 (65 Fe) MG TABS FERROUS SULFATE 04282707333 Kolemariaelena Ellis DOXYCYCLINE HYCLATE 100 MG CAPS DOXYCYCLINE HYCLATE 47869552237 Kolemariaelena Ellis ATORVASTATIN CALCIUM 40 MG TABS ATORVASTATIN CALCIUM 58119071956 Kole Ellis ASPIRIN 325 MG TABS ASPIRIN 12243686135 Kole Ellis Medications Administered No information available. [...] Procedures Code Procedure Name Date Entry Date CPT-56755 CMP C4441b,[id number] CBC with Differential 2018 CPT-18778 C- reactive protein CPT-23059 X-Ray, Chest, PA & Lateral 2 Vital [...] Directives Directive Description Start Date POWER OF L[employer] WILL ON FILE
--- OUTSIDE RECORDS SUMMARY | 2025-07-09 10:48 | XMS_ITS | Referral Summary ---
Author Organization [employer] ([place], [place], [place], [place], [place]) Address [address] [place] [address] Care Team Providers Care Kettle Fry Cook Operator Name Role Phone Unavailable Primary Care Provider [...] Date Nikko rded Speak language other than Turkish at home Not on file 03/26/2024 Want [...]
--- OUTSIDE RECORDS SUMMARY | 2025-07-09 10:48 | XMS_ITS | Clinical Summary ---
Author Organization [employer] ([place], [place], [place], [place], [place]) Address [address] [place] [address] Care Team Providers Care Grain Packer Name Role Phone Unavailable Primary Care Provider [...] Date Nikko rded Speak language other than Citizen [place] at home Not on file 03/26/2024 Want [...]
--- OUTSIDE RECORDS SUMMARY | 2025-07-09 10:48 | XMS_ITS | Data Portability ---
Author Organization [facility] Office Address [address] [facility] [address] [address] Care Team Providers Care Machine Erector Name Role Phone ANUJ DONATO Primary Care Provider Assessment Encounter Date Assessment Date Assessment LastModified by Organization Details LastModified Time 02/09/2022 02/09/2022 Medication compliance: According to patient medications are working well. Patient denies any side effects to medications prescribed. There are no signs of tolerance. Pattern of medication use is as previously prescribed. The patient states he/she is taking his/her medications as prescribed. He/She still has symptoms on a continuous basis, but they are alleviated somewhat by current meds. He/She understands that his/her symptoms will not be completely eliminated by medications. The patient has been instructed as to the type of medication prescribed along with directions for use. Potential side effects have been discussed, along with risks and benefits of taking this medication. He/She was instructed what to do if he/she experiences side effects, including when to discontinue the medication and was advised to call this office in this event. Prescription refills: Medications refilled for 2 months with no changes. Global Risk Assessment Score: high Risk. High Risk Assessment: Multiple Opioid Medication Medication Regimen (>2 controlled substances) High Doses of Opioids to Manage Pain (>30 mg Morphine or equivalent) ORT Score: Risk Score: Date of ORT: . Lab work reviewed: UDS of 10/04/21 reviewed and is Appropriate . Blood Work results: 10/04/2021 Normal STEVEN (prescription drug monitoring report): As of 02/09/22 reviewed and is appropriate Last fill Inappropriate due to: . [email or web address] Not available 02/09/2022 11:37:57 04/05/2022 04/05/2022 Medication compliance: According to patient medications are working well. Patient denies any side effects to medications prescribed. There are no signs of tolerance. Pattern of medication use is as previously prescribed. The patient states he/she is taking his/her medications as prescribed. He/She still has symptoms on a continuous basis, but they are alleviated somewhat by current meds. He/She understands that his/her symptoms will not be completely eliminated by medications. The patient has been instructed as to the type of medication prescribed along with directions for use. Potential side effects have been discussed, along with risks and benefits of taking this medication. He/She was instructed what to do if he/she experiences side effects, including when to discontinue the medication and was advised to call this office in this event. Prescription refills: Medications refilled for 2 months with no changes. Global Risk Assessment Score: high Risk. High Risk Assessment: Multiple Opioid Medication Medication Regimen (>2 controlled substances) High Doses of Opioids to Manage Pain (>30 mg Morphine or equivalent) ORT Score: Risk Score: Date of ORT: . Lab work reviewed: UDS of 10/04/21 reviewed and is Appropriate . Blood Work results: 10/04/2021 Normal pt will bring from surgeon HARRIS (prescription drug monitoring report): As of today reviewed and is appropriate Last fill Inappropriate due to: . [email or web address] Not available 04/05/2022 10:37:59 06/06/2022 06/06/2022 Global Risk Assessment Score: Moderate Risk -multiple pain areas or multiple medical conditions -multiple physicians treating patient's other conditions -does not meet the criteria for high risk patients STEVEN (prescription drug monitoring report): reviewed today and is appropriate. Labwork Reviewed UDS on 04/05/2022 reviewed and is appropriate [email or web address] Not available 06/06/2022 11:03:01 08/08/2022 08/08/2022 Medication compliance: According to patient medications are working well. Patient denies any side effects to medications prescribed. There are no signs of tolerance. Pattern of medication use is as previously prescribed. The patient states he/she is taking his/her medications as prescribed. He/She still has symptoms on a continuous basis, but they are alleviated somewhat by current meds. He/She understands that his/her symptoms will not be completely eliminated by medications. The patient has been instructed as to the type of medication prescribed along with directions for use. Potential side effects have been discussed, along with risks and benefits of taking this medication. He/She was instructed what to do if he/she experiences side effects, including when to discontinue the medication and was advised to call this office in this event. Prescription refills: Medications refilled for 2 months with no changes. Global Risk Assessment Score: high Risk. High Risk Assessment: Multiple Opioid Medication Medication Regimen (>2 controlled substances) High Doses of Opioids to Manage Pain (>30 mg Morphine or equivalent) Abnormal UDMs (including presence of licit/illicit meds not prescribed Abnormal PC/DS Abnormal PDMP Physical symptoms suggesting substance abuse-misuse at OV's Behavioral/psych ological symptoms suggesting substance abuse-misuse at OV's History of legal or illegal substance use including treatments for abuse or dependence Personal History of alcoholism, illicit drug abuse/diversion, ALC abuse/physical abuse Moderate Risk Assessment: Multiple Pain or Medical Conditions (i.e., back, head and fibromyalgia) Multiple Physicians treating patient's conditions History of early refills History of previous pain clinics History of legal or illegal substance use by first degree relatives, including treatments for abuse or dependence History/Diagnosi s of Mental Health/Psychiatr ic illnesses that may impact the patient's treatment with controlled substances History/Diagnosi s of Mental Health/Psychiatr ic illnesses that may impact the patient's treatment with controlled substances Non [place] resident Difficulty in contacting the patient ( i.e. multiple residences, multiple phone numbers/no phone, frequent out of town travel/out-of-[facility] work) Lab work reviewed: UDS NOT DONE LAST OV Blood Work results: 06/06/2022 Abnormal BG 146 STEVEN (prescription drug monitoring report): As of 08.08.22 reviewed and is appropriate Last fill 07.08.22 Not available 08/05/2022 10:12:14 Plan of Treatment Reminders Order Date Submit Date Provider Last Modified By Organization Details Last Modified Time Details Appointments None recorded. Lab drug screen, urine - Meds: OXYCODONE INO 2021 022 sharon Donato MD [facility] ([facility]), [address] [facility], [place], [address], 2 08:46:56 CBC w/ auto diff 2021 022 DBA_PATCH _[id number] Rain Donato MD [facility] ([facility]), [address] [place], [address], 3 03:42:00 hepatic function panel, serum 2021 022 DBA_PATCH _[id number] Rain Donato MD [facility] ([facility]), [address] [place], [address], 3 03:42:00 gamma-gluta myl transferase (ggt), serum 2021 JANEE Donato MD [facility] ([facility]), [address] [place] [address], [id number], 2 08:39:23 venipunctur e 2021 prehner Rain Donato MD [facility] ([facility]), [address] [place], [address], 2 09:34:02 drug screen, urine - Meds: 2021 DBA_PATCH _[id number] Rain Donato MD [facility] ([facility]), [facility] [place], [address], 3 03:41:52 Referral None recorded. Procedures None recorded. Surgeries None recorded. Imaging None recorded. Medication Orders oxycodone 10 mg tablet 2021 [facility], [address] [place] [address], [id number], 2 13:56:32 oxycodone 10 mg tablet 2021 [facility], [address] [place] [address], [id number], 2 13:56:35 oxycodone 10 mg tablet 2021 022 [facility], [address] [place] [address] S, [place], [id number], 2 11:12:27 oxycodone 10 mg tablet 2021 022 [email or web address] [facility], [address] [place] [address] S, [place], [id number], 2 10:42:05 oxycodone 10 mg tablet 2021 [facility], [address] [place] [address] S, GI[place], [id number], 2 16:55:57 oxycodone 10 mg tablet 2021 022 [facility], [address] [place] [address] S, GIOVANY [place], [id number], 2 16:56:00 oxycodone 10 mg tablet 2021 [facility], [address] [place] [address] [place], [id number], 2 16:20:56 oxycodone 10 mg tablet 2021 022 [facility], [address] [place] [address] [place], [id number], 2 16:20:59 Patient TargetsNo targets recorded. Patient Instructions Encounter Date Encounter Id Patient Instructions Last Modified By Organization Details Last Modified Time 02/09/2022 [id number] Pt remains stabl e with current regime. No changes today. Return appointment in 2 month for medication management [email or web address] Not available 02/09/2022 11:38:06 04/05/2022 [id number] Pt remains stabl e with current regime. No changes today. Return appointment in 2 month for medication management. [email or web address] Not available 04/05/2022 10:35:25 pt request increase in # of Oxycodone. Will get him with MD to discuss. [email or web address] Not available 04/05/2022 10:32:57 06/06/2022 [id number] Treatment Plan: Prescription refills: Medications refilled for 2 months with no changes. pt can't afford to come here every month due to expenses with medications for his heart and he can't afford a $40 copay here every month. He is an exception and I will let him come every 2mos due to reasons above and he has been stable on his current medications for many years. He also works several jobs pt needs to see pcp about elevated glc but he said that he checked in past and it was nml. His pcp is leaving and he needs a new one. continue q2mos ov due to cost of monthly visits and he is at cutoff for ov's and he can't decrease dose due to pain level. He will have to leave our clinic and go to [place] if we mandate monthly visits for him. He has not had telehealth ov pharm closed weekends fill dates 06/09, 07/09/22 [email or web address] Not available 06/06/2022 11:09:06 08/08/2022 [id number] 1. Continue current medications 2. Encourage light activity with rest breaks 3. Encourage moist heat, ice, acupuncture, chiropractor, etc. 4. Call with any issues Not available 08/05/2022 10:12:17 Patient seen today incident to a physician s previously established diagnosis and plan of care. Follow-up care provided today under the plan of care of: Josselyn Bar MD and supervision of: Josselyn Bar MD. Not available 08/08/2022 08:41:29 Reason for Referral None Reported. Results Created Date Observation Date Name Description Value Unit Range Abnormal Flag Note LastModifiedBy Organization Detail LastModifiedTime 04/05/2004/05/2022 OXYCO DONE CONFI RMATI ON, UR abnormal status abnormal Not Available Narda Donato MD [facility] ([facility]) [address] [place], [address], 04/12/2022 00:39:46 04/05/20 22 04/11/2022 OPIAT E CONFI RMATI ON,UR opiates Negati ve NG/mL cutoff =300 Opiat e test inclu vihs Codei ne, Morph ine, [place] morph one, [place] codon e. Not Available Rain Donato MD [facility] ([facility]) [address] [place], [address], 04/12/2022 00:39:46 04/05/20 22 04/05/2022 UDM LABCO RP-U1 0 UNBUN D+ALC +SVT please note: Commen t Drug- test resul ts shoul d be inter prete d in the rachael xt of clini randi infor matio n. Patie nt metab olic varia bles, speci fic drug chemi stry, and speci men kirsten cteri stics can affec t test outco me. Techn ical consu ltati on is avail able if a test resul t is incon siste nt with an expec brii outco me. ([email or web address] or call toll- free [phone]) . Drug brand s, if liste d herei n, are trade stark of their respe ctive crewman main battle tank s. Not Available Rain Donato MD [facility] ([facility]) [address] [place], [address], 04/12/2022 00:39:45 04/05/20 22 04/08/2022 UDM LABCO RP-U1 0 UNBUN D+ALC +SVT amphetamines screen, urine Negati ve NG/mL cutoff =1000 Not Available Rain Donato MD [facility] ([facility]) [address] [place], [address], 04/12/2022 00:39:45 04/05/20 22 04/08/2022 UDM LABCO RP-U1 0 UNBUN D+ALC +SVT barbiturates screen, urine Negati ve NG/mL cutoff =200 Not Available Rain Donato MD [facility] ([facility]) [address] [place] [address], [id number], 04/12/2022 00:39:45 04/05/20 22 04/08/2022 UDM LABCO RP-U1 0 UNBUN D+ALC +SVT benzodiazepi faviola screen, urine Negati ve NG/mL cutoff =200 Not Available Rain Donato MD [facility] ([facility]) [address] [place] [address], [id number], 04/12/2022 00:39:45 04/05/20 22 04/08/2022 UDM LABCO RP-U1 0 UNBUN D+ALC +SVT cannabinoid screen, urine Negati ve NG/mL cutoff =20 Not Available Rian Donato MD [facility] ([facility]) [address] [place] [address], [address], 04/12/2022 00:39:45 04/05/20 22 04/08/2022 UDM LABCO RP-U1 0 UNBUN D+ALC +SVT cocaine (metab.) screen, urine Negati ve NG/mL cutoff =300 Not Available Rain Donato MD [facility] ([facility]) [address] [place] [address], [address], 04/12/2022 00:39:45 04/05/20 22 04/08/2022 UDM LABCO RP-U1 0 UNBUN D+ALC +SVT opiate screen, urine See Final Result s NG/mL cutoff =300 Opiat e test inclu vish Codei ne, Morph ine, [place] morph one, [place] codon e. Not Available Rain Donato MD [facility] ([facility]) [address] [place] [address], [address], 04/12/2022 00:39:45 04/05/20 22 04/08/2022 UDM LABCO RP-U1 0 UNBUN D+ALC +SVT 6-acetylmorp valerio, urine Negati ve NG/mL cutoff =10 Not Available Rain Donato MD [facility] ([facility]) [address] [place] [address], [id number], 04/12/2022 00:39:45 04/05/20 22 04/08/2022 UDM LABCO RP-U1 0 UNBUN D+ALC +SVT oxycodone/ox ymorphone, urine See Final Result s NG/mL cutoff =100 Test inclu vish Oxyco done and Oxymo rphon e Not Available Rain Donato MD [facility] ([facility]) [address] [place] [address], [address], 04/12/2022 00:39:45 04/05/20 22 04/08/2022 UDM LABCO RP-U1 0 UNBUN D+ALC +SVT methadone screen, urine Negati ve NG/mL cutoff =300 Not Available Rain Donato MD [facility] ([facility]) [address] [place] [address], [address], 04/12/2022 00:39:45 04/05/20 22 04/08/2022 UDM LABCO RP-U1 0 UNBUN D+ALC +SVT buprenorphin e, urine Negati ve NG/mL cutoff =10 Not Available Rain Donato MD [facility] ([facility]) [address] [place] [address], [address], 04/12/2022 00:39:45 04/05/20 22 04/08/2022 UDM LABCO RP-U1 0 UNBUN D+ALC +SVT ethanol, urine Negati ve mg/dL cutoff =0.020 Not Available Rain Donato MD [facility] ([facility]) [address] [place] [address], [address], 04/12/2022 00:39:45 04/05/20 22 04/08/2022 UDM LABCO RP-U1 0 UNBUN D+ALC +SVT creatinine, urine 37.8 mg/dL 20.0-3 00.0 Not Available Rain Donato MD [facility] ([facility]) [address] [place] [address], [address], 04/12/2022 00:39:45 04/05/20 22 04/08/2022 UDM LABCO RP-U1 0 UNBUN D+ALC +SVT pH, urine 7.6 4.5-8. 9 Not Available Rain Donato MD [facility] ([facility]) [address] [place], [address], 04/12/2022 00:39:45 06/06/20 22 06/06/2022 CBC WITH DIFFE RENTI AL/PL ATELE T abnormal status high Not Available Narda Donato MD [facility] ([facility]) [address] [place] [address], [address], 06/07/2022 08:39:24 06/06/20 22 06/06/2022 CBC WITH DIFFE RENTI AL/PL ATELE T abnormal status low Not Available Narda Donato MD [facility] ([facility]) [address] [place] [address], [address], 06/07/2022 08:39:24 06/06/20 22 06/07/2022 GGT GGT 22 IU/L 0-65 Not Available Rain Donato MD [facility] ([facility]) [address] [place] [address], [address], 06/07/2022 08:39:23 06/06/20 22 06/07/2022 HEPAT IC FUNCT ION PANEL (7) protein, total 6.9 g/dL 6.0-8. 5 Not Available Rain Donato MD [facility] ([facility]) [address] [place] [address], [address], 06/07/2022 08:39:23 06/06/20 22 06/07/2022 HEPAT IC FUNCT ION PANEL (7) bilirubin, total <0.2 mg/dL 0.0-1. 2 Not Available Rain Donato MD [facility] ([facility]) [address] [place] [address], [address], 06/07/2022 08:39:23 06/06/2006/07/2022 HEPAT IC FUNCT ION PANEL (7) bilirubin, direct <0.10 mg/dL 0.00-0 .40 Not Available Rain Donato MD [facility] ([facility]) [address] [place] [address], [address], 06/07/2022 08:39:23 06/06/20 22 06/07/2022 HEPAT IC FUNCT ION PANEL (7) alkaline phosphatase 105 IU/L 44-121 Not Available Vance Donato MD [facility] ([facility]) [address] [place] [address], [address], 06/07/2022 08:39:23 06/06/20 22 06/07/2022 HEPAT IC FUNCT ION PANEL (7) AST (SGOT) 13 IU/L 0-40 Not Available Rain Donato MD [facility] ([facility]) [address] [place] [address], [address], 06/07/2022 08:39:23 06/06/20 22 06/07/2022 HEPAT IC FUNCT ION PANEL (7) ALT (SGPT) 10 IU/L 0-44 Not Available Rain Donato MD [facility] ([facility]) [address] [place] [address], [address], 06/07/2022 08:39:23 06/06/20 22 06/07/2022 RENAL PANEL (10) glucose 146 mg/dL 70-99 high Ple ase note refer ence inter deepak mayers e Not Available Rain Donato MD [facility] ([facility]) [address] [place] [address], [address], 06/07/2022 08:39:22 06/06/20 22 06/07/2022 RENAL PANEL (10) BUN 7 mg/dL 6-24 Not Available Rain Donato MD [facility] ([facility]) [address] [place] [address], [address], 06/07/2022 08:39:22 06/06/20 22 06/07/2022 RENAL PANEL (10) creatinine 0.86 mg/dL 0.76-1 .27 Not Available Rain Donato MD [facility] ([facility]) [address] [place], [address], 06/07/2022 08:39:22 06/06/20 22 06/07/2022 RENAL PANEL (10) BUN/creatini ne ratio 8 9-20 low Not Available Narda Donato MD [facility] ([facility]) [address] [place], [address], 06/07/2022 08:39:22 06/06/20 22 06/07/2022 RENAL PANEL (10) sodium 142 mmol/ L 134-14 4 Not Available Rain Donato MD [facility] ([facility]) [address] [place], [address], 06/07/2022 08:39:22 06/06/20 22 06/07/2022 RENAL PANEL (10) potassium 4.3 mmol/ L 3.5-5. 2 Not Available Rain Donato MD [facility] ([facility]) [address] [place], [address], 06/07/2022 08:39:22 06/06/20 22 06/07/2022 RENAL PANEL (10) chloride 103 mmol/ L 96-106 Not Available Rain Donato MD [facility] ([facility]) [address] [place], [address], 06/07/2022 08:39:22 06/06/20 22 06/07/2022 RENAL PANEL (10) carbon dioxide, total 28 mmol/ L 20-29 Not Available Rain Donato MD [facility] ([facility]) [address] [place], [address], 06/07/2022 08:39:22 06/06/20 22 06/07/2022 RENAL PANEL (10) calcium 9.1 mg/dL 8.7-10 .2 Not Available Rain Donato MD [facility] ([facility]) [address] [place], [address], 06/07/2022 08:39:22 06/06/20 22 06/07/2022 RENAL PANEL (10) phosphorus 3.5 mg/dL 2.8-4. 1 Not Available Rain Donato MD [facility]) [address] [place], [address], 06/07/2022 08:39:22 06/06/20 22 06/07/2022 RENAL PANEL (10) albumin 4.1 g/dL 3.8-4. 9 Not Available Rain Donato MD [facility] ([facility]) [address] [place], [address], 06/07/2022 08:39:22 08/08/20 22 08/08/2022 OXYCO DONE CONFI RMATI ON, UR abnormal status abnormal Not Available Narda Donato MD [facility] ([facility]) [address] [place] [address], [address], 08/16/2022 20:41:39 08/08/20 22 08/16/2022 OPIAT E CONFI RMATI ON,UR opiates Negati ve NG/mL cutoff =300 Opiat e test inclu vish Codei ne, Morph ine, [place] morph one, [place] codon e. Not Available Rain Donato MD [facility] ([facility]) [facility] [place], [address], 08/16/2022 20:41:38 08/08/20 22 08/08/2022 UDM LABCO RP-U1 0 UNBUN D+ALC +SVT please note: Commen t Drug- test resul ts shoul d be inter prete d in the rachael xt of clini randi infor matio n. Patie nt metab olic varia bles, speci fic drug chemi stry, and speci men kirsten cteri stics can affec t test outco me. Techn ical consu ltati on is avail able if a test resul t is incon siste nt with an expec brii outco me. ([email or web address] or call toll- free [phone]) . Drug brand s, if liste d herei n, are trade stark of their respe ctive crewman main battle tank s. Not Available Rain Donato MD [facility]) [address] [place] [address], [address], 08/16/2022 20:41:38 08/08/20 22 08/10/2022 UDM LABCO RP-U1 0 UNBUN D+ALC +SVT amphetamines screen, urine Negati ve NG/mL cutoff =1000 Not Available Rain Donato MD [facility]) [address] [place] [address], [address], 08/16/2022 20:41:38 08/08/20 22 08/10/2022 UDM LABCO RP-U1 0 UNBUN D+ALC +SVT barbiturates screen, urine Negati ve NG/mL cutoff =200 Not Available Rain Donato MD [facility] ([facility]) [address] [place] [address], [address], 08/16/2022 20:41:38 08/08/20 22 08/10/2022 UDM LABCO RP-U1 0 UNBUN D+ALC +SVT benzodiazepi faviola screen, urine Negati ve NG/mL cutoff =200 Not Available Rain Donato MD [facility] ([facility]) [address] [place] [address], [address], 08/16/2022 20:41:38 08/08/20 22 08/10/2022 UDM LABCO RP-U1 0 UNBUN D+ALC +SVT cannabinoid screen, urine Negati ve NG/mL cutoff =20 Not Available Rain Donato MD [facility]) [address] [place] [address], [address], 08/16/2022 20:41:38 08/08/20 22 08/10/2022 UDM LABCO RP-U1 0 UNBUN D+ALC +SVT cocaine (metab.) screen, urine Negati ve NG/mL cutoff =300 Not Available Rain Donato MD [facility] ([facility]) [address] [place] [address], [address], 08/16/2022 20:41:38 08/08/20 22 08/10/2022 UDM LABCO RP-U1 0 UNBUN D+ALC +SVT opiate screen, urine See Final Result s NG/mL cutoff =300 Opiat e test inclu vish Codei ne, Morph ine, [place] morph one, [place] codon e. Not Available Rain Donato MD [facility] ([facility]) [address] [place] [address], [address], 08/16/2022 20:41:38 08/08/20 22 08/10/2022 UDM LABCO RP-U1 0 UNBUN D+ALC +SVT 6-acetylmorp valerio, urine Negati ve NG/mL cutoff =10 Not Available Rain Donato MD [facility] ([facility]) [address] [place] [address], [address], 08/16/2022 20:41:38 08/08/20 22 08/10/2022 UDM LABCO RP-U1 0 UNBUN D+ALC +SVT oxycodone/ox ymorphone, urine See Final Result s NG/mL cutoff =100 Test inclu vish Oxyco done and Oxymo rphon e Not Available Rain Donato MD [facility] ([facility]) [address] [place] [address], [address], 08/16/2022 20:41:38 08/08/20 22 08/10/2022 UDM LABCO RP-U1 0 UNBUN D+ALC +SVT methadone screen, urine Negati ve NG/mL cutoff =300 Not Available Rain Donato MD [facility]) [address] [place] [address], [address], 08/16/2022 20:41:38 08/08/20 22 08/10/2022 UDM LABCO RP-U1 0 UNBUN D+ALC +SVT buprenorphin e, urine Negati ve NG/mL cutoff =10 Not Available Rain Donato MD [facility]) [address] [place] [address], [address], 08/16/2022 20:41:38 08/08/20 22 08/10/2022 UDM LABCO RP-U1 0 UNBUN D+ALC +SVT ethanol, urine Negati ve mg/dL cutoff =0.020 Not Available Rain Donato MD [facility]) [address] [place], [address], 08/16/2022 20:41:38 08/08/20 22 08/10/2022 UDM LABCO RP-U1 0 UNBUN D+ALC +SVT creatinine, urine 111.8 mg/dL 20.0-3 00.0 Not Available Rain Donato MD [facility]) [address] [place], [address], 08/16/2022 20:41:38 08/08/20 22 08/10/2022 UDM LABCO RP-U1 0 UNBUN D+ALC +SVT pH, urine 5.7 4.5-8. 9 Not Available Rain Donato MD [facility]) [address] [place], [address], 08/16/2022 20:41:38 Result Notes None recorded. Problems Name Problem SNOMED Code Status Onset Date Resolution Date Notes Provider Name and Address Organization Details Recorded Time Chronic pain due to injury 827699786 Active (338.21)C hronic Pain due to Trauma Josselyn Bar MD [address] [place], [address] , [facility] 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 2 11:07:23 Low back pain 910172704 Active (724.2)Neisha mbago Josselyn Bar MD [address] [facility], [place], [address] , [facility] 2 11:07:17 Fibromyos itis 48328439 Active (729.1)My algia and Myositis Not Otherwise Specified Josselyn Bar MD [address] [facility], [place], [place], [address] , [facility] 2 11:07:06 Cramp in limb 745654772 Active (729.82)C ramp in Limb Not Available [facility] 2 22:08:23 Malaise and fatigue 764477971 Active (780.79)M ALAISE AND FATIGUE NEC Not Available [facility] 2 22:08:23 Reduced libido 6440080 Active (799.81)D ecreased Libido Not Available [facility] 2 22:08:23 Depressio n screening Active (V79.0)Sp ecial Screening Examinati on for Depressio n Not Available [facility] 2 22:08:24 Drug dependenc e 638669169 Active 2010 (304.90)D rug Dependenc e Not Otherwise Specified Unspecifi ed Not Available [facility] 2 22:08:23 Long-term drug therapy Active 2010 (V58.69)E ncounter for Long-Term Use of Other Medicatio ns Not Available [facility] 2 22:08:24 Backache 831848912 Active 2011 (724.5)Ba ckache NOS Not Available [facility] 2 22:08:23 Continuou s opioid dependenc e 466542379 Active 2013 (304.01)O pioid Type Dependenc e Continuou s Not Available [facility] 2 22:08:23 Chronic pain following trauma 075984559 Active 2014 (G89.21)C hronic pain due to trauma Not Available [facility] 2 22:08:23 Muscle pain 32790293 Active 2014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
--- OUTSIDE RECORDS SUMMARY | 2025-07-09 10:48 | XMS_ITS | Clinical Summary ---
Author Organization Healthcare Address [address] [place] [address] Care Team Providers Care Optical Instruments Supervisor Name Role Phone Unavailable Primary Care Provider [...]
--- OUTSIDE RECORDS SUMMARY | 2025-07-09 10:48 | XMS_ITS | Clinical Summary ---
Author Organization [facility] [place] [address] Care Team Providers Care Instrument Repair Supervisor Name Role Phone Unavailable Primary Care [...]
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
--- NOTE | 2025-07-09 11:00 | CT_ITS ---
FINAL REPORT CLINICAL HISTORY: lung cancer screening current smoker 1ppd x46 years COMPARISON: 04/24/2024 FINDINGS: CT CHEST LOW DOSE SCREENING HISTORY: Screening exam for lung cancer. DOSE: CTDI vol: 2.90 mGy, DLP: 108.12 mGy*cm TECHNIQUE: Axial CT without IV contrast administration using low dose protocol. This study was performed with techniques to keep radiation doses as low as reasonably achievable, (ALARA). Individualized dose reduction techniques using automated exposure control or adjustment of mA and/or kV according to the patient's size were employed. No acute lung disease is present. The 3 mm right lower lobe nodule on image 50 of series 4 is stable although much better seen on this current exam. There is also a 3 mm left lower lobe nodule image 59 which is stable. No new pulmonary nodule identified. No pleural or pericardial effusion is seen. No adenopathy or mass lesion is present. Status post CABG. Gynecomastia is noted. IMPRESSION: Stable lung nodules without evidence of neoplasm. LUNG RADS CATEGORY 2 RECOMMENDATION: 12 month LDCT follow up Reviewed, Interpreted and Dictated by Sangita Fortune MD Transcribed by Leticia Newman Authenticated and [facility]
== END 2025-07-09 23:59 | disposition home or self-care (01) ==
LOC: RAD 10:39
PROVIDERS: PCP Family Medicine; Visit Provider Family Medicine
DX: Z12.2 Encounter for screening for malignant neoplasm of respiratory organs (principal); F17.210 Nicotine dependence, cigarettes, uncomplicated; R91.8 Other nonspecific abnormal finding of lung field; N62 Hypertrophy of breast; Z95.1 Presence of aortocoronary bypass graft
CPT/HCPCS: 71271